=== PATIENT | female | born 1980 | race Caucasian/White ===

== ENCOUNTER → 2024-06-07 | Outpatient (CLI) | payer MEDICAID, SELFPAY ==
--- NOTE | 2024-06-07 13:52 | XR_ITS ---
Examination: Bilateral hands, 6 views. Technique: AP, Oblique, Lateral each hand total 6 views Date and time of exam: June 07, 2024 1440 hours INDICATIONS: Hand pain 10 years, history bilateral carpal tunnel repair Findings: Minimal osteopenia No fracture or dislocation involving either hand No erosive or other significant arthritic change involving either hand No opaque foreign bodies No cortical bone destruction IMPRESSION: No erosive or other significant arthritic change involving either hand
--- NOTE | 2024-06-07 13:52 | XR_ITS ---
Examination: Bilateral wrists 6 views TECHNIQUE: AP oblique lateral each wrist total 6 views Exam date and time: June 07, 2024 1445 hours INDICATIONS: Wrist pain 10 years, history bilateral carpal tunnel surgery FINDINGS: Minimal osteopenia No fracture or dislocation involving either wrist No erosive or other significant arthritic change involving either wrist IMPRESSION: No erosive or other significant arthritic change involving either wrist
== END | disposition home or self-care (01) ==
DX: M25.531 Pain in right wrist (principal); M25.532 Pain in left wrist; M79.641 Pain in right hand; M79.642 Pain in left hand
CPT/HCPCS: 73110; 73130